=== PATIENT | female | born 1935 | race Caucasian/White ===

== ENCOUNTER → 2016-05-09 | Outpatient (CLI) | payer OTHER ==
[~2016-05-09] MED LIST: AMLO10TA2 PO; ASPI325T PO; ASPI81TA PO; ATOR1TAB19 PO; COLA100C PO; CYMB1CAP4 PO; FLON1SPR; FURO20TA2 PO; HYDR-3713 PO; LIDOCAINE 2% MDV 20 ML VIAL As Ordered ONE; LIDOCAINE W/EPINEPHRINE 1% 20ML VIAL As Ordered ONE; LOSA100T36 PO; LOSA50TA20 PO; MELO15TA4 PO; METO-209 PO; METO100T PO; OMEP20CA3 PO; PANT40TA2 PO; RANI150T PO; REFR0.5D8 OU; SODIUM BICARBONATE 8.4% INJ 50MEQ 50 ML VIAL As Ordered ONE; SUCR1SS PO; TEMA15CA2 PO; TYLE650T35 PO
--- NOTE | 2016-05-09 15:31 | REPKIM ---
CLINICAL HISTORY: Patient has a chest ptauqw-[id number]-[id number] on the right. The referring service has requested to remove the chest port because it is no longer needed. PROCEDURE PERFORMED: Chest Nhvpfs-I-Qtdy Removal INTERVENTIONALIST: Staci Santacruz MD MEDICATIONS: Local Lidocaine EBL: less than 10 mL FLUORO TIME: 0.1 minutes CONSENT: The risks, benefits and alternatives to the procedure were explained to the patient and informed written consent was obtained. PROCEDURE/FINDINGS: The patient was brought to the interventional radiology suite and was positioned supine on the table. Time out procedure was performed. The pre-procedure chest fluoroscopy showed the pre-existing catheter is intact with its tip at the cavoatrial junction. The right upper chest was prepped and draped in the usual sterile fashion. Local anesthesia was administered to the overlying skin and surrounding deep tissue around the existing port. Then a skin incision was made. The port was bluntly dissected free from the surrounding soft tissues. The catheter was removed, inspected and confirmed to be removed in its entirety. The deep tissue was closed with interrupted 2-0 Vicryl suture. The skin incision closed with running subcutaneous 4-0 Vicryl suture and steristrips. The patient tolerated the procedure well with no immediate complications. This procedure was performed with fluoroscopic guidance. Dr. Santacruz was present. IMPRESSION: Successful chest tukjhv-x-auhv removal as discussed above. cc: Munira Mcclure MD [facility]
== END | disposition home or self-care (01) ==
LOC: M IRPRO 10:10
PROVIDERS: ATTEND Internal Medicine Medical Oncology
DX: Z45.2 Encounter for adjustment and management of vascular access device (principal)

== ENCOUNTER → 2016-09-19 | Outpatient (CLI) | payer OTHER ==
[~2016-09-19] MED LIST changes: -COLA100C PO; +COLA100C3 PO; -LIDOCAINE 2% MDV 20 ML VIAL As Ordered ONE; -LIDOCAINE W/EPINEPHRINE 1% 20ML VIAL As Ordered ONE; -SODIUM BICARBONATE 8.4% INJ 50MEQ 50 ML VIAL As Ordered ONE
--- NOTE | 2016-09-20 07:56 | RADONC ---
RADIATION ONCOLOGY FOLLOWUP NOTE: DATE: 09/19/2016 CHART NUMBER: [id number]. DIAGNOSIS: Glottic larynx. STAGE: III, T3N0M0. ECOG PERFORMANCE STATUS: Zero. FOLLOWUP NOTE: Ms. 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 The patient presents today reporting that she is doing extremely well with no complaints at this time related to her radiation therapy or disease. She reports no difficulty swallowing or discomfort. She is having no pain. REVIEW OF SYSTEMS: The patient's review of systems is noncontributory. Denies nausea, vomiting, fevers, chills, night sweats, diplopia, headaches, anxiety or depression, anorexia, weight loss, visual disturbances, chest pain, urinary or bowel difficulties, bone pain, or neurological problems. PHYSICAL EXAMINATION: The patient is a well-developed, well-nourished white female in no acute distress. HEENT exam is normocephalic, atraumatic. The patient's oral cavity shows no evidence of nodularity ulceration of disease. There is no palpable preauricular, cervical, supraclavicular, infraclavicular or axillary lymphadenopathy present. Her lungs are clear to auscultation and percussion. ASSESSMENT: Ms. Yates is clinically [place] at this time. She is seen by Dr. Baldwin every 4 weeks for laryngoscopic evaluation and is cancer free at this point. She is also being seen by her medical oncologist every 6 months. In light of her close followup with her head and neck surgeon and medical oncologist, I have discharged her from our followup except on an as needed basis. cc: MD Luís Daniel Jr, MD Norman Weir, MD *Dr. Shaun Anderson
== END ==
LOC: M ONCR 14:19
PROVIDERS: ATTEND Radiology Radiation Oncology
DX: C32.0 Malignant neoplasm of glottis (principal)

== ENCOUNTER → 2017-02-06 | Outpatient (CLI) | payer OTHER ==
[~2017-02-06] MED LIST changes: -COLA100C3 PO; +COLA100C5 PO; +ISOVUE-370 76% 100ML VIAL (Q9967) As Ordered ONE; -METO-209 PO; -METO100T PO; +METO100T5 PO; +METO1TAB33 PO
--- NOTE | 2017-02-06 16:02 | REP ---
CT NECK WITH CONTRAST: HISTORY: Glottic neoplasm. CONTRAST: Isovue-370, 75 mL COMPARISON: 11/14/2015 A BB was placed on the midline anterior neck at the level of the hyoid bone. The patient is status post tracheostomy. There is thickening of the vocal cords. This extends superiorly to the level of the false vocal cords. Soft tissue thickening is present in the region of the anterior commissure. There is minimal mass effect on the trachea. These findings are suspicious for recurrent tumor. There is thickening of the epiglottis and aryepiglottic folds. Increased density is present in the paralaryngeal, preepiglottic and retropharyngeal spaces. Stranding is present in the overlying anterior subcutaneous tissues. These findings are consistent with post radiation change. The naso- and oropharynx are normal in appearance. Small lymph nodes less than 1 cm in size are present in the internal jugular chains, posterior triangles and submandibular areas. Atherosclerotic calcification is present at the carotid bifurcations. Degenerative change is present in the cervical spine. The lung apices are clear. Mucosal thickening is present in the right maxillary sinus. IMPRESSION: There is thickening of the true vocal cords with minimal mass effect in the larynx suspicious for recurrent tumor. Postradiation change as described above. The patient is status post tracheostomy. Signed by Ralph Zimmerman MD 02/06/2017 04:09 P
== END ==
LOC: M RAD 14:00
PROVIDERS: ATTEND Otolaryngology
DX: C32.0 Malignant neoplasm of glottis (principal)
CPT/HCPCS: 70491; Q9967